=== PATIENT | male | born 1990 ===

== ENCOUNTER 2020-04-17 15:37 | Outpatient (CLI) | payer OTHER | END 2020-04-17 18:00 | disposition home or self-care (01) | LOC: PPH VACUNA 15:37 | DX: Z23 Encounter for immunization (principal) ==

== ENCOUNTER → 2020-11-30 | Outpatient (CLI) | payer OTHER | END | disposition home or self-care (01) | LOC: LAB 08:40 | PROVIDERS: ATTEND Emergency Medicine Pediatric Emergency Medicine | DX: Z03.818 Encounter for observation for suspected exposure to other biological agents ruled out (principal) ==

== ENCOUNTER 2021-05-07 08:00 | Outpatient (CLI) | payer OTHER | END 2021-05-07 08:15 | disposition home or self-care (01) | LOC: PPH VACUNA 08:00 | PROVIDERS: ATTEND Emergency Medicine Pediatric Emergency Medicine | DX: Z23 Encounter for immunization (principal) ==

== ENCOUNTER → 2022-07-15 | Outpatient (CLI) | payer OTHER | END | disposition home or self-care (01) | LOC: SONOGRAMA 09:35 | PROVIDERS: ATTEND Surgery | DX: K42.9 Umbilical hernia without obstruction or gangrene (principal) ==

== ENCOUNTER 2023-04-13 13:07 | Outpatient (CLI) | payer OTHER | END 2023-04-13 13:26 | disposition home or self-care (01) | LOC: MRI 13:07 | PROVIDERS: ATTEND Colon & Rectal Surgery | DX: M54.50 Low back pain, unspecified (principal) | CPT/HCPCS: 72148 ==

== ENCOUNTER 2023-07-02 08:39 | Outpatient (CLI) | payer OTHER | END 2023-07-02 08:48 | disposition home or self-care (01) | LOC: RAD 08:39 | PROVIDERS: ATTEND Physical Medicine & Rehabilitation | DX: M25.551 Pain in right hip (principal) ==

== ENCOUNTER → 2024-06-30 | Outpatient (CLI) | payer OTHER | END | disposition home or self-care (01) | LOC: MRI 07:33 | PROVIDERS: ATTEND Physical Medicine & Rehabilitation | DX: M25.511 Pain in right shoulder (principal) | CPT/HCPCS: 73221 ==